=== PATIENT | female | born 1955 | race Hispanic/Latino ===

== ENCOUNTER 2017-08-23 06:10 | Day surgery (SDC) | payer BC ==
[2017-08-21 08:54] VITALS: BMI 46.7
[2017-08-23] MEDS ORDERED: Lidocaine 2% Inj (20ml) ONE (06:48)
[2017-08-23] MEDS ORDERED: Phenylephrine 10 mg/ml Inj ONE (06:49)
[2017-08-23] MEDS ORDERED: Iodixanol 320 MG/ML 200 ML BOTTLE IV ONE (06:50)
[2017-08-23] MEDS ORDERED: Iohexol 350mgl/ml 50 ML ONE (06:50)
[2017-08-23] MEDS ORDERED: Nitroglycerin 50mg in D5W 0 MG/0 ML BOTTLE IV ONE (06:50)
[2017-08-23] MEDS ORDERED: Iodixanol 320 MG/ML 100 ML BOTTLE IV ONE (06:50)
[2017-08-23] MEDS ORDERED: Midazolam 2 MG/2 ML VIAL ONE ×2 (07:14→08:01)
[2017-08-23] MEDS ORDERED: Sodium Chloride 0.9% 1,000 ML IV SCH (08:30)
[2017-08-23 08:55] VITALS: TEMP 98.1
[2017-08-23 12:43] VITALS: BP 104/60; PULSE 60; RESP 18; O2SAT 98
--- NOTE | 2017-08-23 18:37 | CARDCATH ---
PROCEDURE DATE: 08/23/2017 PROCEDURES: 1. Selective left and right coronary angiography. 2. Left ventriculography. 3. Right femoral arteriography. 4. Mynx deployment. HISTORY: This is a 61-year-old woman with history of hypertension, diabetes, and recent chest pain, scheduled for surgery. Preoperative catheterization was advised. INDICATION: As above. FINDINGS: HEMODYNAMICS: Aortic pressure was 110/76 with left ventricular pressure of 110/16. CORONARY ANATOMY: 1. Left mainstem was normal. 2. Left anterior descending artery and its branches are normal as well. 3. Left circumflex artery was normal. 4. Right coronary artery was normal and dominant. LEFT VENTRICULOGRAPHY: A hand injection was performed in the left ventricle revealing normal wall motion with ejection fraction of 60%. RIGHT FEMORAL ARTERIOGRAPHY: A right femoral arteriogram was performed in the JOINER projection. This revealed no evidence of significant disease and appropriate level of arterial puncture. The puncture site was then closed with deployment of a Mynx device. CONCLUSIONS: 1. Normal coronary arteries. 2. Normal LV systolic function. 3. Noncardiac chest pain. RECOMMENDATIONS: Given the above findings, the patient is stable from a cardiac standpoint and to proceed with her surgery as planned. Continued risk factor control was advised. Alexander Shahid MD
== END 2017-08-23 13:00 | disposition home or self-care (01) ==
LOC: CATH 06:10
PROVIDERS: ATTEND Internal Medicine Cardiovascular Disease
DX: R07.89 Other chest pain (principal); E11.9 Type 2 diabetes mellitus without complications; I10 Essential (primary) hypertension; Z79.84 Long term (current) use of oral hypoglycemic drugs; Z79.82 Long term (current) use of aspirin
CPT/HCPCS: 36415; 84703; 86850; 86900; 93458; 99152; 99153; C1760; C1769; C2629; J1644; J2250; J3010; J7030; J7040